=== PATIENT | male | born 1950 | race Hispanic/Latino ===

== ENCOUNTER 2018-03-16 06:41 | Day surgery (SDC) | payer MEDICARE, MEDICAID ==
[~2018-03-16 06:41] MED LIST: CRESTOR20 MG PO; FENOFIBRATE145 MG PO; LEVOTHYROXIN50 MCG PO; NEXIUM20 M1 PO; NEXIUM40 M1 PO; NO HOME MEDS; PANTOPRAZOLE SO40 M1 PO
[2018-03-16 10:19] VITALS: BP 117/70
== END 2018-03-16 10:45 | disposition home or self-care (01) ==
LOC: ENDO 06:41 → ORM 07:30 → ENDO 07:35
PROVIDERS: ATTEND Internal Medicine Gastroenterology
PROC: 0DBK8ZX Excision of Ascending Colon, Via Natural or Artificial Opening Endoscopic, Diagnostic (ICD-10-PCS; principal; 2018-03-16)
PROC: 0D758ZZ Dilation of Esophagus, Via Natural or Artificial Opening Endoscopic (ICD-10-PCS; 2018-03-16)
PROC: 0DB48ZX Excision of Esophagogastric Junction, Via Natural or Artificial Opening Endoscopic, Diagnostic (ICD-10-PCS; 2018-03-16)
PROC: 0DB78ZX Excision of Stomach, Pylorus, Via Natural or Artificial Opening Endoscopic, Diagnostic (ICD-10-PCS; 2018-03-16)
DX: R10.11 Right upper quadrant pain (principal); K59.00 Constipation, unspecified; R14.0 Abdominal distension (gaseous); K64.4 Residual hemorrhoidal skin tags; K64.8 Other hemorrhoids; D12.2 Benign neoplasm of ascending colon; K21.9 Gastro-esophageal reflux disease without esophagitis; Q39.8 Other congenital malformations of esophagus; K22.2 Esophageal obstruction; K29.50 Unspecified chronic gastritis without bleeding; Q40.2 Other specified congenital malformations of stomach; K44.9 Diaphragmatic hernia without obstruction or gangrene; E78.5 Hyperlipidemia, unspecified

== ENCOUNTER 2020-08-20 07:37 | Emergency (ER) | payer MEDICARE, MEDICAID ==
[~2020-08-20] VITALS: Ht 157.5 cm; Wt 61.3 kg
[2020-08-20 07:48] VITALS: BP 142/83
[2020-08-20] MEDS ORDERED: DOXYCYCL HYC100 M4 PO (07:54)
== END 2020-08-20 08:10 | disposition home or self-care (01) ==
LOC: ED 07:37
PROC: 0H9NXZZ Drainage of Left Foot Skin, External Approach (ICD-10-PCS; principal; 2020-08-20)
DX: S90.822A Blister (nonthermal), left foot, initial encounter (principal); L03.116 Cellulitis of left lower limb; E78.5 Hyperlipidemia, unspecified; X58.XXXA Exposure to other specified factors, initial encounter

== ENCOUNTER 2020-10-14 08:42 | Emergency (ER) | payer MEDICARE, MEDICAID ==
[~2020-10-14] VITALS: Ht 157.5 cm; Wt 61.0 kg
[~2020-10-14 08:42] MED LIST changes: +DOXYCYCL HYC100 M4 PO
[2020-10-14] MEDS ORDERED: FENOFIBRATE145 MG PO (10:11)
[2020-10-14] MEDS ORDERED: TAMSULOSIN HCL0.4 MG PO (10:11)
[2020-10-14] MEDS ORDERED: PRAVASTATIN40 MG PO (10:12)
[2020-10-14] MEDS ORDERED: LEVOTHYROXIN75 MC1 PO (10:12)
[2020-10-14] MEDS ORDERED: MOTRIN400 MG/TAB PO (11:04)
[2020-10-14 11:15] VITALS: BP 138/82
== END 2020-10-14 11:15 | disposition home or self-care (01) ==
LOC: ED 08:42
DX: M54.6 Pain in thoracic spine (principal); E78.5 Hyperlipidemia, unspecified; Z20.822 Contact with and (suspected) exposure to COVID-19

== ENCOUNTER 2021-01-12 09:14 | Day surgery (SDC) | payer MEDICARE, MEDICAID ==
[~2021-01-12] VITALS: Ht 162.6 cm; Wt 61.2 kg
[~2021-01-12 09:14] MED LIST changes: +LEVOTHYROXIN75 MC1 PO; +MOTRIN400 MG/TAB PO; +PRAVASTATIN40 MG PO; +TAMSULOSIN HCL0.4 MG PO
[2021-01-12] MEDS ORDERED: PERCOCET 5/325M1 TAB PO (12:05)
[2021-01-12 15:15] VITALS: BP 152/96
== END 2021-01-12 15:00 | disposition home or self-care (01) ==
LOC: ORM 09:14
PROVIDERS: ATTEND Surgery
PROC: 0FT44ZZ Resection of Gallbladder, Percutaneous Endoscopic Approach (ICD-10-PCS; principal; 2021-01-12)
DX: K81.1 Chronic cholecystitis (principal)
CPT/HCPCS: J0131

== ENCOUNTER 2022-10-14 08:31 | Inpatient (IN) | payer MEDICARE, MEDICAID ==
[~2022-10-14] VITALS: Ht 157.5 cm; Wt 60.2 kg
[2022-10-14] VITALS (26 sets, daily range): BP systolic 97–165; BP diastolic 39–102
[~2022-10-14 08:31] MED LIST changes: +PERCOCET 5/325M1 TAB PO
[2022-10-14 09:15] LABS: BASO% 0.2 % (0-3); HEMOGLOBIN 14.2 g/dl (14.0-18.0); IMMATURE GRANULOCYTES 0.2 % (0.0-5.0); LYMPH% 18.4 % (15-41); MEAN CELL VOLUME 84.4 fL CALC (80.0-100.0); MEAN CORPUSCULAR HGB CONC 35.5 g/dL CAL (32.0-36.0); MONO% 9.2 % (2-13); NEUT# 7.09 thou/uL (1.82-7.42); RED BLOOD COUNT 4.74 mill/uL (4.70-6.10); RED CELL DISTRI WIDTH 12.5 % (11.5-15.5)
[2022-10-14 09:19] LABS: ALBUMIN 4.7 g/dL (3.2-5.0); CREATININE 1.5 mg/dL (0.7-1.3); TOTAL PROTEIN 8.5 g/dL (6.3-8.2)
[2022-10-14 09:23] LABS: ACT PARTIAL THROMBO TIME 31.4 SECONDS (20.0-32.5); INTERNATIONAL NORMALIZED RATIO 1.3 RATIO (0.7-1.3); PROTHROMBIN TIME 12.1 SECONDS (9.0-12.5)
[2022-10-14 09:31] LABS: BILIRUBIN, TOTAL 1.4 mg/dL (0.2-1.3); POTASSIUM 3.4 mmol/l (3.5-5.1)
[2022-10-14 11:25] LABS: URINE BILIRUBIN - DIPSTICK Negative (NEGATIVE); URINE BLOOD DIPSTICK Large (NEGATIVE); URINE COLOR Yellow; URINE GLUCOSE - DIPSTICK Negative (NEGATIVE); URINE KETONE Negative (NEGATIVE); URINE LEUK ESTERASE Negative (NEGATIVE); URINE NITRITE - DIPSTICK Negative (Negative); URINE PROTEIN - DIPSTICK 100 mg/dL (NEG-TRACE); URINE UROBILINOGEN - DIPSTICK 0.2 E.U./dL (0.2)
[2022-10-14 11:31] LABS: URINE AMORPH SEDIMENT MANY hpf (NONE-FER)
[2022-10-14] MEDS ORDERED: EZETIMIBE10 MG PO (17:56)
[2022-10-15] VITALS (13 sets, daily range): BP systolic 96–129; BP diastolic 45–74
[2022-10-15 05:20] LABS: IMMATURE GRANULOCYTES 0.2 % (0.0-5.0); MEAN CELL VOLUME 83.6 fL CALC (80.0-100.0); MEAN CORPUSCULAR HGB 29.7 pG CALC (26.0-32.0); MEAN CORPUSCULAR HGB CONC 35.5 g/dL CAL (32.0-36.0); MONO% 2.8 % (2-13); NEUT# 11.21 thou/uL (1.82-7.42); RED BLOOD COUNT 3.84 mill/uL (4.70-6.10); RED CELL DISTRI WIDTH 12.8 % (11.5-15.5)
[2022-10-15 05:22] LABS: HEMATOCRIT 32.1 % (39.0-50.0); HEMOGLOBIN 11.4 g/dl (14.0-18.0)
[2022-10-15 05:37] LABS: ALKALINE PHOSPHATASE 39 u/l (38-126); BILIRUBIN, TOTAL 1.4 mg/dL (0.2-1.3); BUN 17 mg/dL (8-23); BUN/CREATININE RATIO 17 (12-20 (CALC)); C-REACTIVE PROTEIN 8.8 mg/dL (0-0.9); CARBON DIOXIDE 24 mmol/l (22-30); CHOLESTEROL HDL RATIO 3.4 (<4.4 (CALC)); GFR FOR AFR.AMER. > 60 ML/MIN (>=60 (CALC)); GFR OTHER RACES > 60 ML/MIN (>=60 (CALC)); MAGNESIUM 1.6 mg/dL (1.6-2.3); POTASSIUM 3.3 mmol/l (3.5-5.1); SGOT/AST 69 u/l (19-48); SODIUM 136 mmol/l (137-146)
[2022-10-15 05:43] LABS: ALBUMIN 3.4 g/dL (3.2-5.0); ANION GAP 9 (6-22 (CALC)); CHLORIDE 106 mmol/l (95-108); CPK 1967 u/l (55-170); TOTAL PROTEIN 6.5 g/dL (6.3-8.2)
[2022-10-16 04:05] VITALS: BP 124/71
[2022-10-16 06:45] LABS: BASO% 0.1 % (0-3); EOS% 0.2 % (0-8); HEMATOCRIT 27.8 % (39.0-50.0); HEMOGLOBIN 9.9 g/dl (14.0-18.0); IMMATURE GRANULOCYTES 0.2 % (0.0-5.0); LYMPH% 10.8 % (15-41); MEAN CELL VOLUME 85.5 fL CALC (80.0-100.0); MEAN CORPUSCULAR HGB 30.5 pG CALC (26.0-32.0); MEAN CORPUSCULAR HGB CONC 35.6 g/dL CAL (32.0-36.0); MONO% 3.5 % (2-13); NEUT# 11.17 thou/uL (1.82-7.42); NEUT% 85.2 % (42-76); RED BLOOD COUNT 3.25 mill/uL (4.70-6.10); RED CELL DISTRI WIDTH 13.3 % (11.5-15.5)
[2022-10-16 06:50] LABS: ALBUMIN 3.1 g/dL (3.2-5.0); ALKALINE PHOSPHATASE 38 u/l (38-126); ANION GAP 9 (6-22 (CALC)); BILIRUBIN, TOTAL 0.8 mg/dL (0.2-1.3); BUN 15 mg/dL (8-23); BUN/CREATININE RATIO 18 (12-20 (CALC)); CARBON DIOXIDE 20 mmol/l (22-30); CHLORIDE 112 mmol/l (95-108); CREATININE 0.9 mg/dL (0.7-1.3); GFR FOR AFR.AMER. > 60 ML/MIN (>=60 (CALC)); GFR OTHER RACES > 60 ML/MIN (>=60 (CALC)); MAGNESIUM 2.2 mg/dL (1.6-2.3); POTASSIUM 3.7 mmol/l (3.5-5.1); SGOT/AST 110 u/l (19-48); SODIUM 137 mmol/l (137-146)
[2022-10-16 07:34] VITALS: BP 133/70
[2022-10-16 13:15] LABS: HEMATOCRIT 27.6 % (39.0-50.0); HEMOGLOBIN 9.5 g/dl (14.0-18.0); MEAN CORPUSCULAR HGB 29.6 pG CALC (26.0-32.0); MEAN CORPUSCULAR HGB CONC 34.4 g/dL CAL (32.0-36.0); RED BLOOD COUNT 3.21 mill/uL (4.70-6.10); RED CELL DISTRI WIDTH 13.5 % (11.5-15.5)
[2022-10-16 15:33] VITALS: BP 117/73
[2022-10-16 19:34] VITALS: BP 125/70
[2022-10-17 04:48] VITALS: BP 139/55
[2022-10-17 06:05] VITALS: BP 149/81
[2022-10-17 06:15] LABS: BASO% 0.3 % (0-3); EOS% 0.7 % (0-8); HEMATOCRIT 28.3 % (39.0-50.0); HEMOGLOBIN 9.6 g/dl (14.0-18.0); IMMATURE GRANULOCYTES 0.4 % (0.0-5.0); LYMPH% 21.9 % (15-41); MEAN CELL VOLUME 85.8 fL CALC (80.0-100.0); MEAN CORPUSCULAR HGB 29.1 pG CALC (26.0-32.0); MEAN CORPUSCULAR HGB CONC 33.9 g/dL CAL (32.0-36.0); NEUT# 5.08 thou/uL (1.82-7.42); NEUT% 72.7 % (42-76); RED BLOOD COUNT 3.3 mill/uL (4.70-6.10); RED CELL DISTRI WIDTH 13.4 % (11.5-15.5)
[2022-10-17 06:27] LABS: ALKALINE PHOSPHATASE 38 u/l (38-126); ANION GAP 10 (6-22 (CALC)); BILIRUBIN, TOTAL 0.6 mg/dL (0.2-1.3); BUN 13 mg/dL (8-23); BUN/CREATININE RATIO 16 (12-20 (CALC)); CARBON DIOXIDE 20 mmol/l (22-30); CHLORIDE 112 mmol/l (95-108); CREATININE 0.8 mg/dL (0.7-1.3); GFR FOR AFR.AMER. > 60 ML/MIN (>=60 (CALC)); GFR OTHER RACES > 60 ML/MIN (>=60 (CALC)); MAGNESIUM 1.9 mg/dL (1.6-2.3); POTASSIUM 3.6 mmol/l (3.5-5.1); SGOT/AST 104 u/l (19-48); SODIUM 138 mmol/l (137-146); TOTAL PROTEIN 5.7 g/dL (6.3-8.2)
[2022-10-17] MEDS ORDERED: AMOX/K CLAV875 M1 PO (10:07)
[2022-10-17] MEDS ORDERED: ZITHROMAX250 MG PO (10:08)
[2022-10-17 16:09] VITALS: BP 148/53
== END 2022-10-17 17:23 | disposition home or self-care (01) | DRG 871 ==
LOC: ED 08:31 → ED-I 12:58 → ICU 13:16 → ED 13:16 → ICU 14:14 → MS2 10-15 12:28
PROVIDERS: Family Medicine; ADMIT Student in an Organized Health Care Education/Training Program; ATTEND Student in an Organized Health Care Education/Training Program
DX: A41.9 Sepsis, unspecified organism (principal); J18.9 Pneumonia, unspecified organism; N17.9 Acute kidney failure, unspecified; E87.20 Acidosis, unspecified; M62.82 Rhabdomyolysis; R91.8 Other nonspecific abnormal finding of lung field; E86.0 Dehydration; D64.9 Anemia, unspecified; E03.9 Hypothyroidism, unspecified; E78.5 Hyperlipidemia, unspecified; K21.9 Gastro-esophageal reflux disease without esophagitis; N40.0 Benign prostatic hyperplasia without lower urinary tract symptoms; K64.4 Residual hemorrhoidal skin tags; Z20.822 Contact with and (suspected) exposure to COVID-19
CPT/HCPCS: J1650; J3475